=== PATIENT | male | born 1960 | race African-American/Black ===

== ENCOUNTER 2020-11-24 10:26 | Inpatient (IN) ==
[2020-11-24] MEDS ORDERED: SODIUM CHLORIDE 0.9% 1,000 ML IV STA (13:43)
[2020-11-24] MEDS ORDERED: DEXAMETHASONE 4 MG/1 ML VIAL IV STA (13:43)
[2020-11-24 13:59] LABS: Basophils % 0.2 % (0.0-0.8); Eosinophils % 0.1 % (0.00-10.9); Hematocrit 47.1 VOL% (42.0-52.0); Hemoglobin 15.8 GM/DL (14.0-18.0); Immature Granulocytes % 0.6 %; Immature Granulocytes Absolute 0.05 #; Lymphocytes % 24.1 % (21.2-54.2); Mean Corpuscular HGB Conc 33.5 GM/DL (32-36); Mean Corpuscular Volume 90.2 FL (87-102); Mean Platelet Volume 10.9 FL (9.6-12.0); Monocytes % 4.9 % (1.7-12.7); Neutrophils % 70.1 % (38.7-73.9); Platelet Count 231 T/CUMM (130-400); Red Blood Count 5.22 MC/CUMM (3.8-5.5); Red Cell Distribution Width 13.6 % (9.3-17.3); White Blood Count 8.1 T/CUMM (4-12)
[2020-11-24] MEDS ORDERED: DOCUSATE SODIUM 100 MG CAPSULE PO PRN (14:28)
[2020-11-24] MEDS ORDERED: ONDANSETRON 4 MG/2 ML VIAL IV PRN ×2 (14:28→15:30)
[2020-11-24] MEDS ORDERED: ACETAMINOPHEN 325 MG TABLET PO PRN ×2 (14:28→15:30)
[2020-11-24] MEDS ORDERED: DEXTROSE 50% 25 GM/50 ML VIAL IV PRN ×2 (14:28→18:14)
[2020-11-24] MEDS ORDERED: GLUCAGON 1 MG VIAL IM PRN ×2 (14:28→18:14)
[2020-11-24] MEDS ORDERED: MELATONIN 3 MG TABLET PO PRN ×2 (14:31→18:14)
[2020-11-24 14:32] LABS: Alanine Aminotransferase 57 U/L (16-61); Alkaline Phosphatase 68 U/L (45-117); Aspartate Amino Transferase 128 U/L (0-37); Blood Urea Nitrogen 43 MG/DL (7-18); CKMB % 0.6 %; Calcium 8.6 MG/DL (8.5-10.1); Carbon Dioxide 30 MMOL/L (21-32); Glucose 130 MG/DL (74-106); Osmolality,Calculated 267.2 MOS/KG (273-304); Potassium 3.4 MMOL/L (3.5-5.1); Sodium 127 MMOL/L (136-145); Total Protein 8.6 G/DL (6.4-8.3); Troponin I < 0.015 NG/ML (0.00-0.045)
[2020-11-24 14:35] LABS: Estimated Glom Filtration Rate 0 ML/MIN
[2020-11-24] MEDS ORDERED: DEXAMETHASONE 4 MG TABLET PO ONE (15:30)
[2020-11-24] MEDS ORDERED: MECLIZINE 25 MG TABLET PO PRN (15:30)
[2020-11-24] MEDS ORDERED: diphenhydrAMINE 50 MG/1 ML VIAL IV PRN ×2 (15:30)
[2020-11-24] MEDS ORDERED: SODIUM CHLORIDE 0.9% 200 ML IV SCH (15:30)
[2020-11-24] MEDS ORDERED: methylPREDNISolone SOD SUC 125 MG/2 ML VIAL IV PRN (15:30)
[2020-11-24] MEDS ORDERED: BAMLANIVIMAB IV ONE (16:00)
[2020-11-24] MEDS ORDERED: SODIUM CHLORIDE 0.9% IV ONE (16:00)
[2020-11-24] MEDS ORDERED: POTASSIUM CHLORIDE 20 MEQ TABLET PO PRN (18:28)
[2020-11-24] MEDS ORDERED: ASCORBIC ACID 500 MG TABLET PO SCH (21:00)
[2020-11-24] MEDS ORDERED: FAMOTIDINE 20 MG TABLET PO SCH (21:00)
[2020-11-24] MEDS: cefTRIAXone 1,000 MG in SYRINGE 1 EACH IV SCH (22:05)
[2020-11-24] MEDS: AZITHROMYCIN INJ 500 MG in SODIUM CHLORIDE 0.9% 250 ML IV SCH (22:10)
[2020-11-24] MEDS: SODIUM CHLORIDE 0.9% 1,000 ML IV SCH (22:10)
[2020-11-24] MEDS: FAMOTIDINE 20 MG TABLET PO SCH (22:10)
[2020-11-24] MEDS: OSELTAMIVIR 30 MG CAPSULE PO SCH (22:10)
[2020-11-24] MEDS: ASCORBIC ACID 500 MG TABLET PO SCH (22:10)
[2020-11-24] MEDS: ENOXAPARIN 40 MG/0.4 ML SYRINGE SUBCUT SCH (22:10)
[2020-11-25] MEDS: SODIUM CHLORIDE 0.9% 1,000 ML IV SCH ×2 (04:37→09:21)
[2020-11-25 08:44] LABS: Hematocrit 45.6 VOL% (42.0-52.0); Hemoglobin 15.2 GM/DL (14.0-18.0); Immature Granulocytes % 0.3 %; Immature Granulocytes Absolute 0.02 #; Lymphocytes # 1.4 10*3/uL (1.4-4.0); Lymphocytes % 23.2 % (21.2-54.2); Mean Corpuscular HGB Conc 33.3 GM/DL (32-36); Mean Corpuscular Volume 90.1 FL (87-102); Mean Platelet Volume 10.7 FL (9.6-12.0); Monocytes % 4.6 % (1.7-12.7); Neutrophils % 71.9 % (38.7-73.9); Platelet Count 255 T/CUMM (130-400); Red Blood Count 5.06 MC/CUMM (3.8-5.5); Red Cell Distribution Width 13.7 % (9.3-17.3); White Blood Count 5.8 T/CUMM (4-12)
[2020-11-25] MEDS: DEXAMETHASONE 4 MG/1 ML VIAL IV SCH (08:54)
[2020-11-25] MEDS: ASCORBIC ACID 500 MG TABLET PO SCH ×2 (08:55→21:58)
[2020-11-25] MEDS: OLMESARTAN 20 MG TABLET PO SCH (08:56)
[2020-11-25] MEDS: ZINC GLUCONATE 50 MG TABLET PO SCH (08:57)
[2020-11-25] MEDS: NEBIVOLOL 10 MG TABLET PO SCH (08:57)
[2020-11-25] MEDS: FEBUXOSTAT 80 MG TABLET PO SCH (08:58)
[2020-11-25] MEDS: hydroCHLOROthiazide 25 MG TABLET PO SCH (08:59)
[2020-11-25] MEDS: FAMOTIDINE 20 MG TABLET PO SCH ×2 (09:00→21:58)
[2020-11-25] MEDS ORDERED: CETIRIZINE 10 MG TABLET PO SCH (09:00)
[2020-11-25] MEDS: OSELTAMIVIR 30 MG CAPSULE PO SCH ×2 (09:00→21:58)
[2020-11-25] MEDS ORDERED: AZITHROMYCIN 250 MG TABLET PO SCH (09:00)
[2020-11-25] MEDS: CETIRIZINE 10 MG TABLET PO SCH (09:00)
[2020-11-25] MEDS ORDERED: CHOLECALCIFEROL 1,000 UNIT TABLET PO SCH (09:00)
[2020-11-25] MEDS ORDERED: ZINC GLUCONATE 50 MG TABLET PO SCH (09:00)
[2020-11-25] MEDS ORDERED: PANTOPRAZOLE 40 MG TABLET PO SCH (09:00)
[2020-11-25] MEDS ORDERED: DEXAMETHASONE 4 MG/1 ML VIAL IV SCH (09:00)
[2020-11-25] MEDS ORDERED: REMDESIVIR 200 MG in SODIUM CHLORIDE 0.9% 210 ML IV ONE (09:00)
[2020-11-25] MEDS: allopurinoL 300 MG TABLET PO SCH (09:02)
[2020-11-25] MEDS: CHOLECALCIFEROL 1,000 UNIT TABLET PO SCH (09:02)
[2020-11-25 09:20] LABS: CKMB % 0.8 %
[2020-11-25 09:21] LABS: Albumin 2.7 G/DL (3.4-5.0); Bilirubin,Total 0.5 MG/DL (0.2-1.0); Calcium 8.2 MG/DL (8.5-10.1); Ferritin 993.8 ng/ml (26-388); Osmolality,Calculated 278.1 MOS/KG (273-304); Potassium 3.9 MMOL/L (3.5-5.1)
[2020-11-25] MEDS: amLODIPine 10 MG TABLET PO SCH (09:34)
[2020-11-25 10:10] LABS: Band Neutrophils 1 % (0-10); Lymphocytes 20 % (20-55); Platelet Estimate Adequate; Segmented Neutrophils 76 % (50-85); Total Cells Counted 100
[2020-11-25 10:11] LABS: Atypical Lymphocytes Few
[2020-11-25] MEDS: AZITHROMYCIN INJ 500 MG in SODIUM CHLORIDE 0.9% 250 ML IV SCH (21:57)
[2020-11-25] MEDS: cefTRIAXone 1,000 MG in SYRINGE 1 EACH IV SCH (21:57)
[2020-11-25] MEDS: ENOXAPARIN 40 MG/0.4 ML SYRINGE SUBCUT SCH (21:58)
[2020-11-26 06:24] LABS: Basophils % 0.1 % (0.0-0.8); Hematocrit 43.7 VOL% (42.0-52.0); Hemoglobin 14.7 GM/DL (14.0-18.0); Immature Granulocytes % 0.6 %; Immature Granulocytes Absolute 0.06 #; Lymphocytes # 1.8 10*3/uL (1.4-4.0); Lymphocytes % 17.4 % (21.2-54.2); Mean Corpuscular HGB Conc 33.6 GM/DL (32-36); Mean Platelet Volume 10.6 FL (9.6-12.0); Monocytes % 5.8 % (1.7-12.7); Neutrophils % 76.1 % (38.7-73.9); Platelet Count 298 T/CUMM (130-400); Red Blood Count 4.91 MC/CUMM (3.8-5.5); Red Cell Distribution Width 13.6 % (9.3-17.3); White Blood Count 10.6 T/CUMM (4-12)
[2020-11-26 06:51] LABS: Calcium 8.3 MG/DL (8.5-10.1); Osmolality,Calculated 280.7 MOS/KG (273-304); Potassium 3.9 MMOL/L (3.5-5.1)
[2020-11-26 06:58] LABS: Platelet Estimate Adequate
[2020-11-26] MEDS ORDERED: AZITHROMYCIN 250 MG TABLET PO SCH (09:00)
[2020-11-26] MEDS ORDERED: REMDESIVIR 100 MG in SODIUM CHLORIDE 0.9% 100 ML IV SCH (09:00)
[2020-11-26] MEDS: DEXAMETHASONE 4 MG/1 ML VIAL IV SCH (09:01)
[2020-11-26] MEDS: CHOLECALCIFEROL 1,000 UNIT TABLET PO SCH (09:02)
[2020-11-26] MEDS: FEBUXOSTAT 80 MG TABLET PO SCH (09:02)
[2020-11-26] MEDS: ZINC GLUCONATE 50 MG TABLET PO SCH (09:02)
[2020-11-26] MEDS: allopurinoL 300 MG TABLET PO SCH (09:02)
[2020-11-26] MEDS: OLMESARTAN 20 MG TABLET PO SCH (09:02)
[2020-11-26] MEDS: hydroCHLOROthiazide 25 MG TABLET PO SCH (09:03)
[2020-11-26] MEDS: ASCORBIC ACID 500 MG TABLET PO SCH (09:03)
[2020-11-26] MEDS: FAMOTIDINE 20 MG TABLET PO SCH (09:03)
[2020-11-26] MEDS: amLODIPine 10 MG TABLET PO SCH (09:03)
[2020-11-26] MEDS: NEBIVOLOL 10 MG TABLET PO SCH (09:03)
[2020-11-26] MEDS: OSELTAMIVIR 30 MG CAPSULE PO SCH (09:03)
[2020-11-26] MEDS: CETIRIZINE 10 MG TABLET PO SCH (09:03)
[2020-11-26 11:43] VITALS: BP 127/76
== END 2020-11-26 13:45 | disposition home or self-care (01) | DRG 177 ==
LOC: N.EDINP 10:26 → N.ED 10:26 → OBSVTOIN 18:14 → N.2E 19:28
PROVIDERS: ADMIT Internal Medicine; ATTEND Internal Medicine

== ENCOUNTER 2022-06-21 15:25 | Observation (INO) ==
[2022-06-21 16:35] LABS: Basophils % 0.4 % (0.0-0.8); Eosinophils # 0.3 10*3/uL (0.0-0.87); Eosinophils % 2.6 % (0.00-10.9); Hematocrit 41.4 VOL% (42.0-52.0); Hemoglobin 13.5 GM/DL (14.0-18.0); Immature Granulocytes % 0.4 %; Immature Granulocytes Absolute 0.04 #; Lymphocytes # 3.8 10*3/uL (1.4-4.0); Lymphocytes % 38.8 % (21.2-54.2); Mean Corpuscular HGB Conc 32.6 GM/DL (32-36); Mean Corpuscular Volume 92.2 FL (87-102); Mean Platelet Volume 12.1 FL (9.6-12.0); Monocytes # 0.6 10*3/uL (0.11-0.8); Monocytes % 5.9 % (1.7-12.7); Neutrophils % 51.9 % (38.7-73.9); Platelet Count 208 T/CUMM (130-400); Red Blood Count 4.49 MC/CUMM (3.8-5.5); Red Cell Distribution Width 14.4 % (9.3-17.3); White Blood Count 9.7 T/CUMM (4-12)
[2022-06-21 16:56] LABS: Albumin 2.8 G/DL (3.4-5.0); Calcium 8.8 MG/DL (8.5-10.1); Osmolality,Calculated 281.4 MOS/KG (273-304); Potassium 3.1 MMOL/L (3.5-5.1); Thyroid Stimulating Hormone 2.03 uIU/ml (0.358-3.74); Total Protein 6.3 G/DL (6.4-8.2)
[2022-06-21] MEDS ORDERED: hydrALAZINE 20 MG/1 ML VIAL IV STA (17:41)
[2022-06-21] MEDS ORDERED: hydrALAZINE 20 MG/1 ML VIAL IV PRN (18:05)
[2022-06-21] MEDS ORDERED: ONDANSETRON 4 MG/2 ML VIAL IV PRN (18:05)
[2022-06-21] MEDS ORDERED: POTASSIUM CHLORIDE 20 MEQ TABLET PO STA (18:13)
[2022-06-21] MEDS ORDERED: POTASSIUM CHLORIDE 20 MEQ TABLET PO PRN (18:13)
[2022-06-21] MEDS: ENOXAPARIN 120 MG/0.8 ML SYRINGE SUBCUT SCH (23:42)
[2022-06-22 05:27] LABS: Basophils % 0.4 % (0.0-0.8); Eosinophils # 0.2 10*3/uL (0.0-0.87); Eosinophils % 1.8 % (0.00-10.9); Hematocrit 43.5 VOL% (42.0-52.0); Hemoglobin 14.2 GM/DL (14.0-18.0); Immature Granulocytes % 0.4 %; Immature Granulocytes Absolute 0.04 #; Lymphocytes # 3.5 10*3/uL (1.4-4.0); Lymphocytes % 32.6 % (21.2-54.2); Mean Corpuscular HGB Conc 32.6 GM/DL (32-36); Mean Corpuscular Volume 92.4 FL (87-102); Mean Platelet Volume 11.2 FL (9.6-12.0); Monocytes # 0.7 10*3/uL (0.11-0.8); Monocytes % 6.5 % (1.7-12.7); Neutrophils % 58.3 % (38.7-73.9); Platelet Count 215 T/CUMM (130-400); Red Blood Count 4.71 MC/CUMM (3.8-5.5); Red Cell Distribution Width 14.2 % (9.3-17.3); White Blood Count 10.6 T/CUMM (4-12)
[2022-06-22 05:52] LABS: Albumin 2.9 G/DL (3.4-5.0); Bilirubin,Total 1.4 MG/DL (0.20-1.00); Osmolality,Calculated 280.4 MOS/KG (273-304); Potassium 3.1 MMOL/L (3.5-5.1); Risk Ratio 3.91; Total Protein 6.7 G/DL (6.4-8.2)
[2022-06-22] MEDS ORDERED: POTASSIUM CHLORIDE 20 MEQ TABLET PO ONE ×2 (07:28→10:00)
[2022-06-22] MEDS ORDERED: FUROSEMIDE 40 MG TABLET PO SCH (09:00)
[2022-06-22] MEDS ORDERED: PANTOPRAZOLE 40 MG TABLET PO SCH (09:00)
[2022-06-22] MEDS: ENOXAPARIN 120 MG/0.8 ML SYRINGE SUBCUT SCH (09:18)
[2022-06-22 16:20] VITALS: BP 118/83
[2022-06-22] MEDS ORDERED: APIXABAN 5 MG TABLET PO SCH (21:00)
== END 2022-06-22 19:25 | disposition home or self-care (01) ==
LOC: N.EDINP 15:25 → N.ED 15:25 → N.TELES 15:25 → N.EDINP 23:50
PROVIDERS: ADMIT Family Medicine; ATTEND Family Medicine